=== PATIENT | male | born 1980 | race Asian ===

== ENCOUNTER 2018-01-23 05:56 | Emergency (ER) | payer OTHER ==
[~2018-01-23] VITALS: Ht 172.7 cm; Wt 79.8 kg
[2018-01-23 06:25] VITALS: BP 143/89
[2018-01-23] MEDS ORDERED: IBUPROFEN 800 MG TAB PO ONE (06:45)
== END 2018-01-23 06:25 | disposition home or self-care (01) ==
LOC: EDBD 06:01 → ER 06:01
DX: S93.402A Sprain of unspecified ligament of left ankle, initial encounter (principal); X50.0XXA Overexertion from strenuous movement or load, initial encounter; Y93.89 Activity, other specified; Y99.8 Other external cause status; Y92.89 Other specified places as the place of occurrence of the external cause
CPT/HCPCS: 73610